=== PATIENT | female | born 1965 | race Caucasian/White ===

== ENCOUNTER 2020-06-22 10:17 | Outpatient (CLI) | payer MEDICARE | END 2020-06-22 23:59 | disposition home or self-care (01) | LOC: RAD 10:17 | PROVIDERS: ATTEND Family Medicine | DX: R56.9 Unspecified convulsions (principal) | CPT/HCPCS: 95819 ==

== ENCOUNTER 2022-10-19 08:52 | Day surgery (SDC) | payer MEDICARE, MEDICAID ==
[~2022-10-19] VITALS: Ht 167.6 cm; Wt 72.7 kg
[2022-10-19 09:03] VITALS: BP 122/72
[2022-10-19] MEDS ORDERED: DOCU-21 PO (09:18)
[2022-10-19] MEDS ORDERED: DESV50TA PO (09:19)
[2022-10-19] MEDS ORDERED: ZOLP10TA PO (09:21)
[2022-10-19] MEDS ORDERED: DESV100T PO (09:22)
[2022-10-19] MEDS ORDERED: [UNRECOGNIZED DRUG - OTHER] PO (09:23)
[2022-10-19] MEDS ORDERED: PROBIOT PO (09:23)
[2022-10-19] MEDS ORDERED: OLAN10TA21 PO (09:23)
[2022-10-19] MEDS ORDERED: GABA PO (09:25)
[2022-10-19] MEDS ORDERED: LEVE10002 PO (09:26)
[2022-10-19] MEDS ORDERED: ESTR1TAB19 PO (09:26)
[2022-10-19] MEDS ORDERED: ALPR1TAB2 PO (09:27)
[2022-10-19] MEDS ORDERED: METH-603 PO (09:28)
[2022-10-19] MEDS ORDERED: OLAN5TAB75 PO (09:29)
[2022-10-19] MEDS ORDERED: AMPH15TA2 PO (09:30)
[2022-10-19] MEDS ORDERED: MIDAZolam 1 MG/ML 5ML VIAL ONE (09:43)
[2022-10-19] MEDS ORDERED: diphenhydrAMINE 50 mg/ml inj ONE (09:43)
[2022-10-19] MEDS ORDERED: LIDOcaine Viscous 15ml cup ONE (09:43)
[2022-10-19] MEDS ORDERED: fentaNYL/PF 50MCG/1 ML 2ML syringe ONE (09:43)
[2022-10-19 10:10] VITALS: BP 132/81
[2022-10-19 10:20] VITALS: BP 133/81
[2022-10-19 10:30] VITALS: BP 131/83
[2022-10-19 10:40] VITALS: BP 123/86
== END 2022-10-19 10:45 | disposition home or self-care (01) ==
LOC: GI LAB 08:52
PROVIDERS: ATTEND Internal Medicine Gastroenterology
DX: R13.10 Dysphagia, unspecified (principal); K29.50 Unspecified chronic gastritis without bleeding; K44.9 Diaphragmatic hernia without obstruction or gangrene; G40.909 Epilepsy, unspecified, not intractable, without status epilepticus; F17.210 Nicotine dependence, cigarettes, uncomplicated; Z79.899 Other long term (current) drug therapy; Z72.89 Other problems related to lifestyle
CPT/HCPCS: 43239; 88305; G0500; J1200; J2250; J3010; J7030; Z7512; 99152; A4620

== ENCOUNTER 2023-02-23 15:56 | Emergency (ER) | payer MEDICARE, MEDICAID ==
[~2023-02-23] VITALS: Ht 167.6 cm; Wt 70.5 kg
[~2023-02-23 15:56] MED LIST: ALPR1TAB2 PO; AMPH15TA2 PO; DESV100T PO; DESV50TA PO; DOCU-21 PO; ESTR1TAB19 PO; GABA PO; LEVE10002 PO; METH-603 PO; OLAN10TA21 PO; OLAN5TAB75 PO; PROBIOT PO; ZOLP10TA PO; [UNRECOGNIZED DRUG - OTHER] PO
[2023-02-23 16:00] VITALS: BP 119/84
--- NOTE | 2023-02-23 18:43 | NUR ---
pt up to give ua
[2023-02-23 19:12] LABS: CLARITY,URINE CLEAR (Clear); GLUCOSE, URINE NEGATIVE (Neg); KETONES,URINE NEGATIVE (Neg); LEUKOCYTE ESTERASE ,URINE NEGATIVE (Neg); NITRITES, URINE NEGATIVE (Neg); OCCULT BLOOD,URINE NEGATIVE (Neg); PROTEIN,URINE NEGATIVE (Neg); UROBILINOGEN,URINE 0.2 E.U/dL (0.2-1.0)
[2023-02-23 19:21] LABS: UA COLLECTION TYPE CLN CATCH MIDSTREAM
[2023-02-23 19:22] LABS: COLOR,URINE DARK YELLOW (Yellow)
[2023-02-23] MEDS ORDERED: morphine 4 MG/ML inj SYRINge IM ONE ×2 (19:35→23:45)
[2023-02-23] MEDS ORDERED: ondansetron 4mg rapidly disintigrating tab PO ONE ×2 (19:37→23:45)
[2023-02-23] MEDS ORDERED: morphine 4 MG/ML inj SYRINge IV ONE (21:50)
[2023-02-23] MEDS ORDERED: ondansetron/PF 4mg/2ml inj IV ONE (21:50)
[2023-02-23] MEDS ORDERED: normal saline 500ml IV soln 500 ML IV SCH (21:50)
--- NOTE | 2023-02-23 22:15 | NUR ---
pt refusing iv and medications. dr johnson notified.
[2023-02-23] MEDS ORDERED: HYDR-3965 PO (23:45)
[2023-02-23] MEDS ORDERED: ondansetron 4mg rapidly disintigrating tab PO STA (23:53)
== END 2023-02-24 00:04 | disposition home or self-care (01) ==
LOC: ER 15:57
DX: M54.59 Other low back pain (principal); M25.551 Pain in right hip; F17.200 Nicotine dependence, unspecified, uncomplicated; W19.XXXA Unspecified fall, initial encounter; Y93.89 Activity, other specified; Y92.89 Other specified places as the place of occurrence of the external cause; Y99.8 Other external cause status
CPT/HCPCS: 71045; 72170; 72192; 81003; 96372; 99285; J2270; J7040

== ENCOUNTER 2023-03-18 13:57 | Emergency (ER) | payer MEDICARE, MEDICAID ==
[~2023-03-18] VITALS: Ht 167.6 cm; Wt 70.0 kg
[~2023-03-18 13:57] MED LIST changes: +HYDR-3965 PO
[2023-03-18 16:15] VITALS: BP 119/86
[2023-03-18] MEDS ORDERED: LIDOcaine 5% patch TP STA (16:24)
[2023-03-18] MEDS ORDERED: ketorolac trometh inj. 60 MG/2 ML VIAL IM ONE (16:25)
[2023-03-18] MEDS ORDERED: DICL100G30 TOP (16:30)
[2023-03-18] MEDS ORDERED: LIDO-15 TP (16:30)
[2023-03-18] MEDS ORDERED: PREG50CA PO (16:30)
== END 2023-03-18 16:53 | disposition home or self-care (01) ==
LOC: ER 13:59
DX: S70.01XD Contusion of right hip, subsequent encounter (principal); S30.1XXD Contusion of abdominal wall, subsequent encounter; Z79.899 Other long term (current) drug therapy; W18.39XD Other fall on same level, subsequent encounter; F17.200 Nicotine dependence, unspecified, uncomplicated; G89.29 Other chronic pain
CPT/HCPCS: 96372; 99284; J1885